=== PATIENT | male | born 1960 | race Caucasian/White ===

== ENCOUNTER → 2017-04-22 15:55 | Outpatient (CLI) | payer OTHER ==
[2017-04-22 16:33] LABS: INR 2.84 (0.85-1.17)
== END | disposition home or self-care (01) ==
LOC: D.LABREF 15:55
DX: D68.312 Antiphospholipid antibody with hemorrhagic disorder (principal); Z51.81 Encounter for therapeutic drug level monitoring

== ENCOUNTER → 2017-11-25 16:38 | Outpatient (CLI) | payer OTHER ==
[2017-11-25 17:31] LABS: INR 1.59 (0.85-1.17); PROTIME 18.5 SECONDS (11.6-15.0)
== END | disposition home or self-care (01) ==
LOC: D.LABREF 16:38
PROVIDERS: Family Medicine
DX: Z51.81 Encounter for therapeutic drug level monitoring (principal); Z79.01 Long term (current) use of anticoagulants

== ENCOUNTER → 2017-12-15 16:36 | Outpatient (CLI) | payer OTHER ==
[2017-12-15 17:12] LABS: INR 3.33 (0.85-1.17)
== END | disposition home or self-care (01) ==
LOC: D.LABREF 16:36
DX: Z51.81 Encounter for therapeutic drug level monitoring (principal); Z79.01 Long term (current) use of anticoagulants

== ENCOUNTER → 2018-02-20 19:55 | Outpatient (CLI) | payer OTHER ==
[2018-02-20 19:14] LABS: INR 2.75 (0.85-1.17); PROTIME 28.4 SECONDS (11.6-15.0)
== END | disposition home or self-care (01) ==
LOC: D.LABREF 18:50
PROVIDERS: Internal Medicine Cardiovascular Disease
DX: Z51.81 Encounter for therapeutic drug level monitoring (principal); Z79.01 Long term (current) use of anticoagulants

== ENCOUNTER 2020-10-15 13:31 | Emergency (ER) | payer OTHER ==
[~2020-10-15] VITALS: Ht 190.5 cm; Wt 90.9 kg
[2020-10-15 13:33] VITALS: Ht 190.5 cm; Wt 90.9 kg
[2020-10-15 15:56] LABS: CALC OSMOLALITY 277 mosm/kg (275-300); CALCIUM 8.7 mg/dL (8.5-10.1); CARBON DIOXIDE 27.6 mmol/L (21.0-32.0); CHLORIDE - SERUM 102 mmol/L (98-107); CREATININE - SERUM 1.6 mg/dL (0.6-1.3); GLUCOSE 108 mg/dL (74-106); POTASSIUM - SERUM 3.7 mmol/L (3.5-5.1); SODIUM 137 mmol/L (136-145); UREA NITROGEN 21 mg/dL (7-18); eGFR NON AFRICAN AMERICAN 47 mL/min (90-120)
[2020-10-15 15:57] LABS: INR 1.68 (0.85-1.17); PROTIME 18.3 SECONDS (11.6-15.0)
[2020-10-15 16:00] LABS: BASOPHILS 0.1 % (0-2); EOSINOPHILS 4.9 % (0-7); HEMATOCRIT 26.7 % (42.0-54.0); HEMOGLOBIN 8.6 g/dL (13.5-17.5); LYMPHOCYTE ABS# 0.98 10x3/uL (1.32-3.57); LYMPHOCYTES 14.4 % (15-50); MCH 28.1 pg (26.0-34.0); MCHC 32.2 g/dL (31.0-37.0); MCV 87.3 fL (80.0-100.0); MEAN PLATELET VOLUME 11.2 fL (7.4-10.4); MONOCYTES 14.9 % (2-11); NEUTROPHILS 64.7 % (40-80); PLATELET COUNT 102 10x3/uL (130-400); RBC 3.06 10x6/uL (4.20-6.10); RDW 15.7 % (11.5-14.5); WBC 6.8 10x3/uL (4.8-10.8)
[2020-10-15 16:18] LABS: ALBUMIN 2.2 g/dL (3.4-5.0); ALKALINE PHOSPHATASE 75 U/L (30-120); ALT (SGPT) 27 U/L (10-68); BILIRUBIN - TOTAL 0.77 mg/dL (0.2-1.3); CKMB 1.6 U/L (0.0-3.6); CREATINE KINASE 310 UL (21-232); PROTEIN - SERUM 5.8 g/dL (6.4-8.2)
[2020-10-15 16:21] LABS: PRO BNP 36553 pg/mL (0-125)
[2020-10-15 16:23] LABS: TROPONIN-I 0.623 ng/mL (0.000-0.060)
[2020-10-15 20:43] VITALS: BP 117/74
== END 2020-10-15 20:43 | disposition other institution (70) ==
LOC: D.ER 13:31
PROVIDERS: Emergency Medicine
DX: R60.1 Generalized edema (principal); I50.9 Heart failure, unspecified; N18.9 Chronic kidney disease, unspecified; D63.1 Anemia in chronic kidney disease; R77.8 Other specified abnormalities of plasma proteins; S70.11XA Contusion of right thigh, initial encounter